=== PATIENT | female | born 1990 | race African-American/Black ===

== ENCOUNTER 2020-10-03 10:00 | Emergency (ER) | payer BC, SELFPAY ==
[2020-10-03 10:11] VITALS: BP 129/88; PULSE 74; RESP 16; TEMP 36.6; O2SAT 98
--- NOTE | 2020-10-03 10:12 | ED.BACK ---
HPI - Back Pain/Injury General Chief Complaint: Back Pain/Injury Stated Complaint: Back pain Time Seen by Provider: 10/03/20 10:13 Source: patient and RN notes reviewed Mode of arrival: ambulatory Limitations: no limitations History of Present Illness HPI Narrative: 30-year-old female presents with concern for low back pain. 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 She denies any direct injury or trauma. Reports mid low back pain that worsens with walking, bending, twisting. Reports she is able to briefly find positions of comfort while lying down, but when she moves the pain returns. Reports she is used heat and 200 mg of ibuprofen every 6 hours with little relief. She denies any perianal anesthesia, loss of bowel or bladder function, fever, abdominal pain, dysuria, hematuria, frequency. Denies any open skin, bruising, redness MD elicited complaint: back pain Related Data Home Medications Medication Instructions Recorded Confirmed bupropion HCl 150 mg PO DAILY 10/03/20 10/03/20 escitalopram oxalate 20 mg PO DAILY 10/03/20 10/03/20 norgestrel-ethinyl estradiol 1 tablet PO DAILY 10/03/20 10/03/20 [Lo-Ovral (21)] Allergies Allergy/AdvReac Type Severity Reaction Status Date / Time No Known Allergies Allergy Verified 10/03/20 10:16 Review of Systems Review of Systems: Narrative: CONSTITUTIONAL: Denies malaise, chills, sweats, or fever. CARDIOVASCULAR: Denies chest pain, palpitations, or edema. RESPIRATORY: Denies cough or dyspnea. GASTROINTESTINAL: Denies abdominal pain, nausea, vomiting, diarrhea, bloody, or mucous stools. GENITOURINARY: Denies dysuria or hematuria. SKIN: Denies rash or itching. MUSCULOSKELETAL: Reports mid low back pain. Denies joint pain, or myalgia. NEUROLOGIC: Denies numbness, weakness, or headache. ion. All systems reviewed & are unremarkable except as noted in HPI and below PMFSH Social History Social History Gender identity (if verbalized by the patient): Female Comments At time of signature, agree with nursing past medical, surgical, social and family history. There is no relevant family history pertinent to the presenting complaint Exam Narrative: Exam Narrative: GENERAL: Well-appearing, well-nourished, and in no acute distress. HEAD: Normocephalic, atraumatic. EYES: PERRLA and EOMI. NECK: Supple. No lymphadenopathy. CHEST: Clear to auscultation. No respiratory distress. HEART: Regular rate and rhythm. Distal pulses palpable and equal, cap refill <3 seconds ABDOMEN: Soft, nontender, nondistended, normal active bowel sounds, no palpable or pulsatile masses. No CVA tenderness MUSCULOSKELETAL: Normal range of motion and strength in all extremities; 5/5 strength with hip flexion and extension, dorsiflexion and extension, knee flexion and extension, plantar flexion and extension. Normal sensation in dermatomal distributions with sensitivity to light touch and pain. No midline back tenderness to palpation. No paraspinal tenderness. SKIN: Warm, dry, no rash. No ecchymosis, erythema, open wounds to back. NEURO: No focal deficits. Alert and oriented x3. Reflexes intact. Normal gait. PSYCH: Normal mood and affect Course Course Emergency Course: Patient is aware of diagnosis, understands and agrees to treatment plan. Anticipatory guidance given. Patient agrees to follow-up as directed and is aware of reasons to seek care at the emergency department. Portions of this record may have been created with voice recognition software Vital Signs Vital signs: Vital Signs Temperature 97.8 F 10/03/20 10:11 Pulse Rate 74 10/03/20 10:11 Respiratory Rate 16 10/03/20 10:11 Blood Pressure 129/88 10/03/20 10:11 Pulse Oximetry 98 10/03/20 10:11 Temperature 97.8 F 10/03/20 10:11 Pulse Rate 74 10/03/20 10:11 Respiratory Rate 16 10/03/20 10:11 Blood Pressure 129/88 10/03/20 10:11 Pulse Oxime
== END 2020-10-03 10:30 | disposition home or self-care (01) ==
PROVIDERS: Emergency Provider Nurse Practitioner; PCP Physician Assistant
DX: M54.5 Low back pain (principal); F41.9 Anxiety disorder, unspecified; F32.9 Major depressive disorder, single episode, unspecified
CPT/HCPCS: 99213; G0463

== ENCOUNTER 2021-02-14 16:07 | Emergency (ER) | payer BC, SELFPAY ==
[2021-02-14 16:22] VITALS: BP 126/64; PULSE 91; RESP 18; TEMP 36.1; O2SAT 100
--- NOTE | 2021-02-14 16:45 | ED.LOWEXIN ---
HPI - Extremity Injury (Lower) General Chief Complaint: Extremity Injury, Lower Stated Complaint: right leg pain Source: patient Mode of arrival: ambulatory Limitations: no limitations History of Present Illness HPI Narrative: Patient is a 30 year old female who presents complaining of right-sided lower back pain that radiates into her right leg x2 weeks. Patient reports pain is intermittent. Patient denies numbness to extremity or loss of bowel or bladder control. Patient reports taking [id number] pain medications with limited relief. Patient denies injury. She denies all other complaints at this time. MD complaint: other (Back pain) Related Data Home Medications Medication Instructions Recorded Confirmed Unknown Control PO DAILY 02/14/21 escitalopram oxalate 1 mg PO DAILY 02/14/21 02/14/21 Allergies Allergy/AdvReac Type Severity Reaction Status Date / Time No Known Allergies Allergy Verified 02/14/21 16:26 Review of Systems Review of Systems: Narrative: CONSTITUTIONAL: Denies fever, chills, or sweats. EYES: Denies visual changes, redness, or discharge. ENT: Denies rhinorrhea, congestion, sore throat, or otalgia. CARDIOVASCULAR: Denies chest pain, palpitations, or edema. RESPIRATORY: Denies cough or dyspnea. GASTROINTESTINAL: Denies abdominal pain, nausea, vomiting, or diarrhea. GENITOURINARY: Denies dysuria or hematuria. SKIN: Denies rash or itching. MUSCULOSKELETAL: Right lower back pain that radiates to buttocks and right leg NEUROLOGIC: Denies headache, numbness, dizziness, or weakness. PSYCHIATRIC: Denies anxiety or depression. [facility] Past Medical History Medical History (Updated 02/14/21 @ 16:53 by LATONIA Wang) Anxiety Depression Family History Family History (Updated 02/14/21 @ 16:48 by LATONIA Wang) Other Heart disease Social History Social History (Updated 02/14/21 @ 16:49 by LATONIA Wang) Smoking status: Never smoker Alcohol intake: current Alcohol use details: Occasional Substance use: never Living arrangements: with family Gender identity (if verbalized by the patient): Female Comments At the time of signature, I have reviewed and agree with nursing past medical, surgical, social, and family history unless otherwise noted. Please see nursing chart for further information. There is no relevant family history pertinent to the presenting complaint. Exam Narrative: Exam Narrative: GENERAL: Well-appearing, well-nourished, and in no acute distress. HEAD: Normocephalic, atraumatic. EYES: EOMI. No redness or drainage. Conjunctiva are normal. ENT: Mucous membranes pink and moist. CHEST: No respiratory distress. HEART: Regular rate and rhythm. MUSCULOSKELETAL: Right paraspinous tenderness with palpation EXTREMITIES: Normal range of motion. No edema. SKIN: Warm, dry, no rash. NEURO: No focal deficits. Alert and oriented x3. Gait steady. PSYCH: Normal affect. No signs of depression or anxiety. Course Vital Signs Vital signs: Vital Signs Temperature 36.1 C L 02/14/21 16:22 Pulse Rate 91 02/14/21 16:22 Respiratory Rate 18 02/14/21 16:22 Blood Pressure 126/64 02/14/21 16:22 Pulse Oximetry 100 02/14/21 16:22 Temperature 36.1 C L 02/14/21 16:22 Pulse Rate 91 02/14/21 16:22 Respiratory Rate 18 02/14/21 16:22 Blood Pressure 126/64 02/14/21 16:22 Pulse Oximetry 100 02/14/21 16:22 Reviewed-patient is informed that they may have pre-hypertension or hypertension based on a blood pressure reading. I recommend the patient call the primary care provider listed on their discharge instructions or a physician of their choice this week to arrange follow-up for further evaluation of possible pre-hypertension or hypertension. MDM - Extremity Injury (Lower) MDM Narrative Medical decision making narrative: Patient most likely has sciatica. Discussed with patient taking [id number] medications for pain
== END 2021-02-14 17:00 | disposition home or self-care (01) ==
PROVIDERS: Emergency Provider Nurse Practitioner; PCP Physician Assistant
DX: M54.31 Sciatica, right side (principal); F41.9 Anxiety disorder, unspecified; F32.9 Major depressive disorder, single episode, unspecified
CPT/HCPCS: 99213; G0463

== ENCOUNTER 2021-03-16 08:15 | Emergency (ER) | payer BC, SELFPAY ==
[2021-03-16 08:46] VITALS: BP 118/70; PULSE 92; RESP 18; TEMP 36.2; O2SAT 100
--- NOTE | 2021-03-16 09:48 | ED.GENADULT ---
HPI - General Adult General Chief complaint: Extremity Problem,Nontraumatic Stated complaint: leg pain Time Seen by Provider: 03/16/21 09:32 Source: patient and RN notes reviewed Mode of arrival: ambulatory Limitations: no limitations History of Present Illness HPI narrative: Patient presents today complaining of a 6-week history of right leg pain and intermittent numbness and tingling that only occurs when she sits down. She does have radiation to her right foot that is constant when she is sitting. Patient is symptom-free when she is standing. She was seen at [facility] on 02/15/2020, diagnosed with sciatica and placed on Flexeril and a Medrol Dosepak. Patient states her symptoms did improve, but returned again. She has an appointment set up with her PCP in 5 days, but could not wait till then for evaluation. Denies back pain. Denies any loss of bowel or bladder control. Patient has been applying ice and heat. She went and got a massage and went to the chiropractor, which did help briefly with her symptoms. MD complaint: Right leg pain, numbness, and tingling Related Data Home Medications Medication Instructions Recorded Confirmed escitalopram oxalate 1 mg PO DAILY 02/14/21 03/16/21 montelukast 10 mg PO DAILY 03/16/21 03/16/21 Allergies Allergy/AdvReac Type Severity Reaction Status Date / Time No Known Allergies Allergy Verified 02/14/21 16:26 Review of Systems Review of Systems: Narrative: CONSTITUTIONAL: Denies body aches, fever, chills, or sweats. EYES: Denies visual changes, redness, or discharge. ENT: Denies rhinorrhea, congestion, sore throat, or otalgia. CARDIOVASCULAR: Denies chest pain, palpitations, or edema. RESPIRATORY: Denies cough or dyspnea. GASTROINTESTINAL: Denies abdominal pain, nausea, vomiting, or diarrhea. GENITOURINARY: Denies dysuria or hematuria. SKIN: Denies rash, itching, or wounds. MUSCULOSKELETAL: Denies back pain, joint pain, or myalgia. NEUROLOGIC: Denies headache, or weakness. + Right leg pain, numbness, tingling PSYCH: Denies depression or anxiety. [facility] Past Medical History Medical History (Updated 03/16/21 @ 09:52 by Jessica Gentile, ACTIVITIES LEADER, ) Anxiety Depression Family History Family History (Updated 02/14/21 @ 16:48 by LATONIA Wang) Other Heart disease Social History Social History (Updated 02/14/21 @ 16:49 by LATONIA Wang) Smoking status: Never smoker Alcohol intake: current Substance use: never Gender identity (if verbalized by the patient): Female Comments At time of signature, I have reviewed and agree with nursing past medical, surgical, social and family history unless otherwise noted. Please see nursing chart for further information. There is no relevant family history pertinent to the presenting complaint Exam Narrative: Exam Narrative: GENERAL: Well-appearing, well-nourished, and in no acute distress. HEAD: Normocephalic, atraumatic. EYES: EOMI. No redness or drainage. Conjunctivae normal. ENT: Mucous membranes pink and moist. NECK: Normal AROM. CHEST: No respiratory distress. MUSCULOSKELETAL: Nontender throughout thoracic and lumbar spine. Nontender SI joint bilateral buttocks. Nontender legs. Patient was unable to sit through the exam on the exam table before her right lateral thigh started become numb and she needed to stand up. Distal sensation is intact in both feet. Saddle sensation intact. Motor refill normal. Posterior tibial pulses normal. Foot push and pulls equal and strong. EXTREMITIES: Normal range of motion. No edema. SKIN: Warm, dry, no rash. Capillary refill normal. Normal skin turgor. NEURO: No focal deficits. Alert and oriented x3. Gait steady. PSYCH: Normal affect. No signs of depression or anxiety. Course Vital Signs Vital signs: Vital Signs Temperature 97.2 F L 03/16/21 08:46 Pulse Rate 92 03/16/21 08:46 Respiratory Rate 18 03/16/21 08:46 Blood Pressure 118/70
== END 2021-03-16 09:58 | disposition home or self-care (01) ==
PROVIDERS: Emergency Provider Nurse Practitioner; PCP Physician Assistant
DX: M54.31 Sciatica, right side (principal); F41.9 Anxiety disorder, unspecified; F32.9 Major depressive disorder, single episode, unspecified
CPT/HCPCS: 99213; G0463

== ENCOUNTER → 2021-04-02 12:08 | Outpatient (CLI) | payer BC, SELFPAY ==
--- NOTE | ~2021-04-02 | XR_ITS ---
XR lumbar spine 2-3V DATE: 04/02/2021 12:24 INDICATION: Lumbar back pain with radiculopathy lower extremities TECHNIQUE: AP, lateral, coned lateral lumbosacral views COMPARISON: None FINDINGS: Normal alignment. No fracture or bone destruction or spondylolisthesis. The lumbar pedicles are intact. Lumbar and upper sacral interspaces appear well preserved. The sacroiliac joints appear normal. IMPRESSION: Negative Reviewed, dictated and finalized at location A. IMPRESSION: Negative
== END ==
PROVIDERS: PCP Physician Assistant; Visit Provider Physician Assistant
DX: M54.16 Radiculopathy, lumbar region (principal)
CPT/HCPCS: 72100

== ENCOUNTER 2022-02-01 19:04 | Emergency (ER) | payer BC, SELFPAY ==
--- NOTE | 2022-02-01 19:09 | ED.URI ---
HPI - URI/Sore Throat General Chief Complaint: Upper Respiratory Infection Stated Complaint: uri Time Seen by Provider: 02/01/22 19:10 Source: patient, family, RN notes reviewed and old records reviewed Mode of arrival: ambulatory Limitations: no limitations History of Present Illness HPI Narrative: 31-year-old female presents to the [facility] with complaints of runny nose, watery eyes, sneezing and nasal congestion for the last 2 days. Denies fevers, chest pain, coughing, shortness of breath. Patient is 7 months and wants to know what she can use for her symptoms. Has used Flonase. Patient also concerned that she lost her taste and smell, had a rapid COVID test done at [facility]. Patient reports that she called her OB and was told to do nasal rinses. Related Data Home Medications Medication Instructions Recorded Confirmed bupropion HCl 300 mg PO DAILY 02/01/22 02/01/22 escitalopram oxalate 20 mg PO DAILY 02/01/22 02/01/22 Allergies Allergy/AdvReac Type Severity Reaction Status Date / Time No Known Allergies Allergy Verified 02/01/22 19:17 Review of Systems Review of Systems: All systems reviewed & are unremarkable except as noted in HPI and below Constitutional: Constitutional: Reports no additional constitutional complaints, Denies chills, Denies fever(s) and Denies headache(s) Eyes: Eyes: Reports no additional eye complaints ENT: Reports as per HPI, Denies vertigo, Denies dizziness, Denies headache(s), Reports nasal congestion and Denies sore throat Comments: Watery eyes, rhinorrhea Cardiovascular: Cardiovascular: Reports no additional cardiovascular complaints, Denies chest pain, Denies syncope, Denies rapid heart rate and Denies dyspnea Respiratory: Respiratory: Reports no additional respiratory complaints, Denies cough, Denies dyspnea and Denies wheezing Gastrointestinal: Gastrointestinal: Reports no additional gastrointestinal complaints, Denies abdominal pain, Denies diarrhea, Denies nausea and Denies vomiting Musculoskeletal: Musculoskeletal: Reports no additional musculoskeletal complaints and Denies numbness Integumentary/Breasts: Skin/Breast: Reports system reviewed and no additional complaints, except as docu Neurologic: Reports system reviewed and no additional complaints, except as documented, Denies vertigo, Denies dizziness, Denies syncope, Denies headache(s), Denies focal weakness and Denies numbness Psychiatric: Psychiatric: Reports no additional psychiatric complaints Allergic/Immunologic: Allergic/Immunologic: Reports no additional allergic/immunologic complaints and Denies wheezing PMFSH Past Medical History Medical History (Updated 02/01/22 @ 19:20 by Tania Marcial APRN) Anxiety Depression Family History Family History Other Heart disease Social History Social History Smoking status: Never smoker Alcohol intake: current Alcohol use details: Occasional Substance use: never Gender identity (if verbalized by the patient): Female Comments At the time of my signature, I reviewed and agree with the nursing past medical, surgical, social, and family history. There is no relevant family history pertinent to the patient complaint. Exam Const: General: cooperative, healthy appearing, no acute distress, well developed and alert Nutritional Appearance: well nourished Orientation/consciousness: patient oriented x3 Limitations: no limitations HENMT: Head: normal to inspection Ears: external ears normal, TM's normal bilaterally and EAC's normal General nose exam: Normal external nose present, Normal nasal mucous membranes and turbinates present and Nasal discharge present clear Mouth: Yes lip normal and Yes moist mucous membranes Throat: tonsils normal, uvula midline, postnasal drainage and no uvular edema Eyes: Alignment and Position: alignment normal
[2022-02-01 19:10] VITALS: BP 135/76; PULSE 115; RESP 16; TEMP 36.4; O2SAT 99
[2022-02-02 18:43] LABS: SARS-CoV-2 RNA PCR Negative
== END 2022-02-01 19:25 | disposition home or self-care (01) ==
PROVIDERS: Emergency Provider Nurse Practitioner
DX: J01.40 Acute pansinusitis, unspecified (principal); Z20.822 Contact with and (suspected) exposure to COVID-19; F41.9 Anxiety disorder, unspecified; F32.A Depression, unspecified
CPT/HCPCS: 99213; C9803; G0463; U0003; U0005

== ENCOUNTER 2022-12-30 08:09 | Emergency (ER) | payer BC, SELFPAY ==
[2022-12-30 08:16] VITALS: BP 125/83; PULSE 76; RESP 16; TEMP 36.3; O2SAT 99
--- NOTE | 2022-12-30 08:30 | ED.URI ---
HPI - URI/Sore Throat General Chief Complaint: Upper Respiratory Infection Stated Complaint: Sinus Time Seen by Provider: 12/30/22 08:20 Source: patient Mode of arrival: ambulatory Limitations: no limitations History of Present Illness HPI Narrative: This is a 32-year-old female who presents with 3 days of sinus congestion, sinus pressure, headache, throat soreness. denies any fever, cough, ear pain. has used Dede and Flonase of 3 days with no relief. denies any sick contacts. Related Data Home Medications Medication Instructions Recorded Confirmed bupropion HCl 300 mg 24 hr tablet, 300 mg PO DAILY 02/01/22 12/30/22 extended release escitalopram oxalate 20 mg tablet 20 mg PO DAILY 02/01/22 12/30/22 Allergies Allergy/AdvReac Type Severity Reaction Status Date / Time No Known Allergies Allergy Verified 12/30/22 08:20 Review of Systems Review of Systems: All systems reviewed & are unremarkable except as noted in HPI and below Constitutional: Constitutional: Denies body ache(s), Denies fever(s), Denies malaise and Denies weakness Eyes: Eyes: Denies loss of vision ENT: Denies otalgia, Reports headache(s), Reports nasal congestion, Reports sinus pain and Reports sore throat Cardiovascular: Cardiovascular: Denies chest pain, Denies irregular heart rhythm and Denies dyspnea Respiratory: Respiratory: Denies cough and Denies dyspnea Gastrointestinal: Gastrointestinal: Denies abdominal pain, Denies melena, Denies hematochezia, Denies diarrhea, Denies nausea and Denies vomiting Musculoskeletal: Musculoskeletal: Denies back pain, Denies myalgias and Denies arthralgias Integumentary/Breasts: Skin/Breast: Denies pruritus and Denies rash Neurologic: Denies headache(s), Denies loss of vision and Denies weakness Psychiatric: Psychiatric: Reports no additional psychiatric complaints [facility] Past Medical History Medical History (Updated 12/30/22 @ 08:37 by Edelmira Longo APRN) Anxiety Depression Family History Family History Other Heart disease Social History Social History Smoking status: Never smoker Alcohol intake: current Alcohol use details: Occasional Substance use: never Living arrangements: with family Gender identity (if verbalized by the patient): Female Comments At time of signature, agree with nursing past medical, surgical, social and family history. There is no relevant family history pertinent to the presenting complaint. Exam Const: General: cooperative, healthy appearing, comfortable, no acute distress and well nourished Nutritional Appearance: well nourished Orientation/consciousness: patient oriented x3 Limitations: no limitations HENMT: Head: normal to inspection, normocephalic and atraumatic Ears: hearing grossly normal bilaterally, external ears normal and TM's normal bilaterally Face/Nose/Sinus: Normal external nose present, Normal nares present, Normal nasal mucous membranes and turbinates present, Normal septum present, normal facial exam, sinuses nontender and face symmetric Face and sinus: normal facial exam, sinuses nontender and face symmetric Mouth: Yes Normal oral and palatal mucosa present, Yes lip normal and Yes moist mucous membranes Teeth and gingiva: dentition normal Throat: uvula midline, abnormal tonsil bilateral erythema, exudates and other (3+ ), posterior oropharynx abnormal edema, erythema and exudates and postnasal drainage Eyes: General: appearance normal, both eyes and all related structures Alignment and Position: alignment normal and position normal Periorbital: periorbital findings normal Eyelids: eyelids normal Pupils: Equal, round and reactive pupils present Neck: Neck: normal visual inspection, full ROM and supple Chest: Chest palpation & inspection: normal inspection of the chest and normal palpation of entire chest wall Re
== END 2022-12-30 08:45 | disposition home or self-care (01) ==
PROVIDERS: Emergency Provider Nurse Practitioner Family; PCP Physician Assistant
DX: J03.90 Acute tonsillitis, unspecified (principal); J06.9 Acute upper respiratory infection, unspecified; F41.9 Anxiety disorder, unspecified; F32.A Depression, unspecified
CPT/HCPCS: 87081; 87880; 99213; G0463

== ENCOUNTER 2024-08-28 08:27 | Emergency (ER) | payer BC, SELFPAY ==
[2024-08-28 08:35] VITALS: BP 109/62; PULSE 72; RESP 20; TEMP 36; O2SAT 98
--- NOTE | 2024-08-28 08:35 | ED.URI ---
HPI - URI/Sore Throat General Chief Complaint: Upper Respiratory Infection Stated Complaint: Sore Throat Time Seen by Provider: 08/28/24 09:00 Source: patient and RN notes reviewed Mode of arrival: ambulatory Limitations: no limitations History of Present Illness HPI Narrative: 33-year-old female presents with concern of for 3 week history of cough and sore throat. She reports she has taken [id number] medications that did not help so she stopped taking them. She denies fever. Reports her child now has similar symptoms MD elicited complaint: cough Related Data Home Medications Medication Instructions Recorded Confirmed segesterone acet 0.15 mg-ethinyl vag ring vaginal 08/28/24 estradiol 0.013 mg/24 hr vaginal ring (Annovera) Allergies Allergy/AdvReac Type Severity Reaction Status Date / Time No Known Allergies Allergy Verified 08/28/24 08:45 Review of Systems Review of Systems: CONSTITUTIONAL: Denies malaise, chills, sweats, or fever. EYES: Denies visual changes, redness, or discharge. ENT: Denies rhinorrhea, congestion, sinus pain, otalgia. Reports sore throat. CARDIOVASCULAR: Denies chest pain, palpitations, or edema. RESPIRATORY: Reports cough. Denies dyspnea. GASTROINTESTINAL: Denies abdominal pain, nausea, vomiting, diarrhea SKIN: Denies rash or itching. MUSCULOSKELETAL: Denies myalgia. NEUROLOGIC: Denies headache. All systems reviewed & are unremarkable except as noted in HPI and below PMFSH Past Medical History Medical History (Updated 08/28/24 @ 09:12 by Tania Li NP) Anxiety Depression Family History Family History Other Heart disease Social History Social History Smoking status: Never smoker Alcohol intake: current Alcohol use details: Occasional Substance use: never Living arrangements: with family Gender identity (if verbalized by the patient): Female Comments At time of signature, agree with nursing past medical, surgical, social and family history. There is no relevant family history pertinent to the presenting complaint Exam Narrative: GENERAL: Well-appearing, well-nourished, and in no acute distress. HEAD: Normocephalic EYES: PERRLA, conjunctivae clear ENT: Nares clear. Mucous membranes moist. TM pearly lilly with dull light reflex bilaterally; no tragal tenderness. Oropharynx not erythematous without lesions. Tonsils not enlarged and without exudate, no drooling, no hoarseness, no trismus, uvula midline. NECK: Supple. No lymphadenopathy CHEST: Mild Scattered rhonchi, otherwise Clear to auscultation, breath sounds equal. No rhonchi, rales, or stridor. No respiratory distress, speaks in full sentences. HEART: Regular rate and rhythm. No murmur heard. SKIN: Warm, dry, no rash. NEURO: Alert and oriented x3. PSYCH: Normal mood and affect Course Course Emergency Course: Patient is aware of diagnosis, understands and agrees to treatment plan. Anticipatory guidance given. Patient agrees to follow-up as directed and is aware of reasons to seek care at the emergency department. Portions of this record may have been created with voice recognition software Level of Care: Express Care Visit Vital Signs Vital signs: Reviewed. MDM - URI/Sore Throat MDM Narrative Medical decision making narrative: Differential diagnosis considered: Rhodes virus, strep pharyngitis, allergic rhinitis, upper respiratory tract infection, sinusitis, rhinosinusitis, nasopharyngitis. viral pharyngitis, otitis media, otitis externa, pneumonia, bronchitis, viral cough syndrome, viral syndrome, and influenza. Exam findings show no acute concerns or changes; patient is non-toxic appearing and is in no distress. Patient is appropriate for outpatient treatment and follow-up. Lab Data Attestation: I reviewed the patient's lab results. Critical Care Time Critical Care Time Critical Care Time: No Discharge Plan Discharge Clinical Impression: Lower respiratory tract infection Patient Disposition: Home, Self-Care Condition: Stable Instructions: Antibiotic Form, Acute Cough (ED) Additional Instructions: 1) Please follow-up with your primary care doctor in the next 1-2 days. 2) If you have any worsening of symptoms or any other urgent concerns please go to the ER. 3) Please take medications as prescribed and continue taking your home medications as usual. 4) Please read and follow information included in discharge instructions. Prescriptions: New azithromycin [Zithromax Z-Chris] 250 mg tablet See Rx Instructions .ROUTE .COMPLEX Qty: 6 0RF Rx Instructions: take 500 mg today (day 1), then 250 mg for 4 days (days 2-5) methylprednisolone [Medrol (Chris)] 4 mg tablets,dose pack See Rx Instructions .ROUTE .COMPLEX Qty: 21 0RF Rx Instructions: orally per package directions No Action Annovera 0.15-0.013 mg/24 hour ring VAGINAL Follow-up/Referrals: Concepcion,PARTH Mcmillan [Primary Care Provider] - Stand Alone Forms: Work/School Release IP Time of Disposition: 09:13
== END 2024-08-28 09:30 | disposition home or self-care (01) ==
PROVIDERS: Emergency Provider Nurse Practitioner; PCP Physician Assistant
DX: J22 Unspecified acute lower respiratory infection (principal)
CPT/HCPCS: 99213; G0463

== ENCOUNTER 2024-10-27 12:21 | Emergency (ER) | payer BC, SELFPAY ==
[2024-10-27 12:27] VITALS: BP 125/67; PULSE 80; RESP 16; TEMP 37.6; O2SAT 100
--- NOTE | 2024-10-27 12:42 | ED.URI ---
HPI - URI/Sore Throat General Chief Complaint: Extremity Injury, Upper Stated Complaint: Eye redness/sore throat/ear pressure Time Seen by Provider: 10/27/24 12:42 Source: patient Mode of arrival: ambulatory Limitations: no limitations History of Present Illness HPI Narrative: 34-year-old female presents with complaint of nasal congestion, postnasal drainage, sinus pressure for the past 2 weeks. Has tried multiple [id number] medications, decongestants to treat symptoms without relief. Patient reports drainage, redness and itching to right eye starting this morning. Afebrile. All systems reviewed and negative except as noted above. Related Data Allergies Allergy/AdvReac Type Severity Reaction Status Date / Time No Known Allergies Allergy Verified 10/27/24 12:28 Review of Systems Review of Systems: CONSTITUTIONAL: Denies fever, chills, or sweats. EYES: Denies visual changes. Reports redness, , itching, discharge right eye. ENT: Reports rhinorrhea, congestion, sinus pressure, postnasal drainage. Denies sore throat, or otalgia. CARDIOVASCULAR: Denies chest pain, palpitations, or edema. RESPIRATORY: Denies cough or dyspnea. GASTROINTESTINAL: Denies abdominal pain, nausea, vomiting, or diarrhea. GENITOURINARY: Denies dysuria or hematuria. SKIN: Denies rash or itching. MUSCULOSKELETAL: Denies back pain, joint pain, or myalgia. NEUROLOGIC: Denies headache, numbness, or weakness. PSYCHIATRIC: Denies anxiety or depression. All other systems reviewed are negative, except as documented in HPI. [facility] Past Medical History Medical History (Updated 10/27/24 @ 12:53 by Veronika Castaneda NP) Depression Anxiety Family History Family History Other Heart disease Social History Social History Smoking status: Never smoker Alcohol intake: current Alcohol use details: Occasional Substance use: never Living arrangements: with family Gender identity (if verbalized by the patient): Female Comments At time of signature, agree with nursing past medical, surgical, social and family history. There is no relevant family history pertinent to the presenting complaint. Exam Narrative: GENERAL: This is a well-nourished, well-developed patient, in no apparent distress. HEAD: normocephalic, atraumatic. EYES: PERRL. Right sclera and conjunctiva erythematous with swelling, yellow drainage. Left eye normal. Vision grossly intact. EARS: External ears normal, auditory canals clear and without drainage, TMs normal without perforation. Hearing grossly intact. NOSE: External nose normal with mild congestion, purulent nasal drainage, erythema and swelling to bilateral nares THROAT: Mucous membranes moist, erythema postnasal drainage. No swelling or exudates. Maxillary sinus tenderness on palpation bilaterally. NECK: Neck supple, non-tender without lymphadenopathy, masses or thyromegaly. CARDIOVASCULAR: Regular rate and rhythm without murmurs, gallops, or rubs. RESPIRATORY: Clear to auscultation. Breath sounds equal bilaterally. No wheezes, rales, or rhonchi. SKIN: warm, Dry, intact with no suspicious lesions or rash, good texture and turgor. NEURO: awake, alert, and oriented to person, place and time. There were no obvious focal neurologic abnormalities. EXTREMITIES: No joint tenderness, effusion, or edema noted. Course Course Level of Care: Express Care Visit Vital Signs Vital signs: Vital Signs Temperature 37.6 C 10/27/24 12:27 Pulse Rate 80 10/27/24 12:27 Respiratory Rate 16 10/27/24 12:27 Blood Pressure 125/67 10/27/24 12:27 Pulse Oximetry 100 10/27/24 12:27 Oxygen Delivery Room Air 10/27/24 12:27 Temperature 37.6 C 10/27/24 12:27 Pulse Rate 80 10/27/24 12:27 Respiratory Rate 16 10/27/24 12:27 Blood Pressure 125/67 10/27/24 12:27 Pulse Oximetry 100 10/27/24 12:27 Oxygen Delivery Room Air 10/27/24 12:27 Reviewed MDM - URI/Sore Throat MDM Narrative Medical decision making narrative: rapid strep negative. Strep culture ordered. Will treat patient for bacterial sinusitis due to duration of symptoms and exam findings. Patient agrees with plan of care. Patient is aware of diagnosis, understands and agrees to treatment plan. Anticipatory guidance given. Patient agrees to follow-up as directed and is aware of reasons to seek care at the emergency department. Portions of this record may have been created with voice recognition software Differential Diagnosis Differential diagnosis: Likely upper respiratory infection, sinusitis, viral infection and pharyngitis Lab Data Labs: Lab Results 10/27/24 Range/Units 12:29 POC Grp A Strep Screen Negative (Negative) Discharge Plan Discharge Clinical Impression: Acute bacterial sinusitis, Acute bacterial conjunctivitis of right eye Patient Disposition: Home, Self-Care Condition: Stable Instructions: Antibiotic Form, Sinusitis (ED) Additional Instructions: Take medications as prescribed. Place antibiotic eyedrops as prescribed. Wash hands before and after placing eyedrops. Take a daily antihistamine such as Claritin or Zyrtec. Drink at least 64 oz water a day. Place cool mist humidifier in bedroom where you sleep. Follow-up with your primary care physician if symptoms are not improving. Patient Language: Macedonian Prescriptions: New doxycycline hyclate 100 mg capsule 100 mg PO BID 7 Days Qty: 14 0RF polymyxin B sulf-trimethoprim 10,000 unit- 1 mg/mL drops 1 drp RIGHT EYE Q3H 7 Days Qty: 10 0RF Rx Instructions: while awake; do not exceed 6 doses in 24 hours methylprednisolone [Medrol (Chris)] 4 mg tablets,dose pack See Rx Instructions PO .COMPLEX Qty: 21 0RF Rx Instructions: orally per package directions fluticasone propionate [Flonase Allergy Relief] 50 mcg/actuation spray,suspension 1 spray intranasal BID Qty: 16 0RF Rx Instructions: administer into each nostril Follow-up/Referrals: Concepcion,PARTH Mcmillan [Primary Care Provider] - Stand Alone Forms: Work/School Release IP Time of Disposition: 12:50
[2024-10-27 12:46] LABS: EDSTREPNEGPOS1 Negative (Negative)
== END 2024-10-27 13:00 | disposition home or self-care (01) ==
PROVIDERS: Emergency Provider Nurse Practitioner Family; PCP Physician Assistant
DX: J01.90 Acute sinusitis, unspecified (principal); H10.31 Unspecified acute conjunctivitis, right eye; B96.89 Other specified bacterial agents as the cause of diseases classified elsewhere; F41.8 Other specified anxiety disorders
CPT/HCPCS: 87081; 87880; 99213; G0463